=== PATIENT | male | born 1945 | race Native Hawaiian/Other Pacific Islander ===

== ENCOUNTER 2018-04-14 12:25 | Emergency (ER) | payer OTHER ==
[~2018-04-14] VITALS: Ht 175.3 cm; Wt 100.2 kg
[2018-04-14 13:30] LABS: PLATELET COUNT 261 K/uL (142-355)
[2018-04-14 13:38] LABS: SODIUM 135 mmol/L (136-145)
[2018-04-14 14:09] VITALS: BP 110/70; TEMP 97.3
[2018-04-14] MEDS ORDERED: CIPRO500 MG PO (14:56)
[2018-04-14] MEDS ORDERED: MONT10TA PO (14:57)
[2018-04-14] MEDS ORDERED: LEVO0.0218 PO (14:57)
[2018-04-14] MEDS ORDERED: RISP0.5T2 PO (14:58)
[2018-04-14] MEDS ORDERED: RISP1TAB PO (14:58)
[2018-04-14] MEDS ORDERED: TERB250T PO (14:58)
[2018-04-14] MEDS ORDERED: ASCO500T18 PO (14:59)
[2018-04-14] MEDS ORDERED: VITAMIN D31000 UNI1 PO (15:00)
== END 2018-04-14 14:34 | disposition other institution (70) ==
LOC: ED 12:25
PROVIDERS: Family Medicine
DX: Z04.6 Encounter for general psychiatric examination, requested by authority (principal); F03.91 Unspecified dementia, unspecified severity, with behavioral disturbance; F06.8 Other specified mental disorders due to known physiological condition; E03.8 Other specified hypothyroidism; K21.9 Gastro-esophageal reflux disease without esophagitis
CPT/HCPCS: 36415; 80053; 80307; 80320; 80329; 81000; 85027; 93005; 99285